=== PATIENT | female | born 1945 | race Caucasian/White ===

== ENCOUNTER → 2017-02-27 | Outpatient (CLI) | payer OTHER ==
[2014-01-30 21:22] VITALS: BP 140/76
--- NOTE | 2017-02-27 13:34 | RAD ---
Examination: Left shoulder, three views History: Pain no trauma Findings: There is no evidence for fracture, dislocation, soft tissue calcification or bone destructi on. Articular spaces are unremarkable for age. The humeral head is in normal position. Impression: No significant abnormality demonstrated. Reported By:
== END ==
LOC: RAD 12:51
PROVIDERS: ATTEND Nurse Practitioner Family
DX: M25.512 Pain in left shoulder (principal)
CPT/HCPCS: 73030

== ENCOUNTER → 2017-07-16 | Outpatient (CLI) | payer OTHER ==
[2014-01-30 21:22] VITALS: BP 140/76
--- NOTE | 2017-07-16 13:57 | MRI ---
STUDY: MRI OF THE LUMBAR SPINE HISTORY: Intervertebral disc disease. Chronic low back pain. Comparison: None. Technique: Multiplanar multi-sequence MRI of the lumbar spine was performed. Sagittal T1, sagittal T 2, and STIR images, axial T1, and axial T2 images were obtained. Findings: Sagittal images: There is some image degradation due to patient motion. Vertebral body heights and alignment are within normal limits. There is a small focal signal abnormal ity within the L1 vertebral body that demonstrates increased signal on T2 and decreased signal on T1 images. There is preserved T2 hyperintensity on STIR images. There is degenerative endplate change id entified, with Modic type 1 change at the opposing endplates of L5/S1. There is multilevel degenerat nitin disc disease, most notable at L5/S1. The conus medullaris is normal in appearance terminating at the level of T12. Axial images: T12 -- L1: Normal. L1 -- L2: There is bilateral facet arthropathy. The central canal and neural foramina are adequate. L2 -- L3: There is bilateral facet arthropathy. The central canal and neural foramina are adequate. L3 -- L4: There is bilateral facet arthropathy and ligamentum flavum infolding. The central canal and neural foramina are adequate. L4 -- L5: There is a shallow disc bulge, bilateral facet arthropathy and ligamentum flavum infolding. The central canal and neural foramina are adequate. L5 -- S1: There is a broad-based disc bulge with left paracentral focal disc herniation. This results in severe left lateral recess stenosis and contact with the traversing S1 nerve root in the left lat eral recess. There is mild bilateral neural foraminal stenosis. IMPRESSION: 1. Single focus of T2 hyperintensity in the L1 vertebral body. Differential considerations would incl ude a bone island, atypical hemangioma or bone metastasis. Clinical correlation is required. Would co nsider further evaluation with contrast-enhanced T1 weighted images with fat saturation to further ch aracterize this finding. 2. Severe left lateral recess stenosis from focal disc herniation at L5/S1. Reported By:
== END ==
LOC: RAD 10:52
PROVIDERS: ATTEND Nurse Practitioner Family
DX: M51.36 Other intervertebral disc degeneration, lumbar region (principal)
CPT/HCPCS: 72148